=== PATIENT | male | born 1940 | race Caucasian/White ===

== ENCOUNTER 2018-07-29 13:00 | Outpatient (RCR) | payer MEDICARE, OTHER ==
--- NOTE | 2018-06-07 17:55 | PT INITIAL EVALUATION ---
MEDICAL DIAGNOSIS: M25.569 Pain in unspecified knee, M25.59 L shoulder pain TREATMENT DIAGNOSIS: Same, also R26.89 Imbalance DATE OF ONSET: 06/25/99 SUBJECTIVE: Juwan Hill (Bill) presents to PT for R knee pain (chronic - years), also L shoulder pain (11/2017) and reports altered balance (2016). He states his Synvisc R knee injection 01/17/18 alleviated R knee pain but he still has functional mobility weakness with descending stairs, carrying boxes, walking outdoors. He states he can walk slowly for a while but walking faster is immediately fatiguing. He has mild L shoulder bursitis from carrying heavy boxes in their move to [place] last summer, but this is better. He also notes he had vertigo with imbalance and diploplia 1.5 years ago and his balance has been off since then. Pain location is Posterior R knee, L lateral shoulder and described as knee and shoulder: ache. Pain scale is 1 on a ten point pain scale. Pain is worse with R knee: walking uneven ground, descending stairs with heavy boxes, L shoulder: laying on L side and better with R knee: Synvisc, L shoulder: moving shoulder. REHAB PROBLEM LIST: Increased Pain Decreased ROM Decreased Strength Decreased Endurance Decreased Balance Decreased Mobility Decreased Gait PREVIOUS MEDICAL HISTORY: DM, L TKA, B CTR, mild peripheral neuropathy, a fib., sleep apnea, R knee [id number] OA. OCCUPATION: Retired. OBJECTIVE: Posture: Protracted shoulder, knees and hips flexed. L distal LE PVD appearance. ROM: R knee AROM 5 deg. extension with crepitus, flexion WNL. B shoulder AROM flexion 130 deg., scaption 140 deg., IR T11, ER 80 deg. at 70 deg. scaption. Strength: B quad 4+/5, R hamstrings 5-/5, L 4/5, ankle DF, evertors 5/5. L shoulder ER 4/5, IR 5/5. Palpation: Tight R knee soft tissue, lateral patellofemoral joint tightness, lateral patellar position. Sensation: Diminished protective sensation B plantar feet, "G" 3.84, Jefferson- Daniela monofilament testing. Special Tests: Negative Hallpike or roll test for nystagmus or spinning vertigo. Head thrust, VOR x1 WNL. Mobility: Sit<>stand without UE use. Med mobility WNL. Gait: Pan ambulates with feet not passing each other, late heel strike to toe off. Functional Gait Assessment 60% impairment. Pan has immediate retro balance loss with closing his eyes, altered gait with retro walk, CGA and can't walk tandem gait due to LOB. Pan is able to turn 180 degrees without balance disturbance, normal fast flow gait. Gait with head motion with weaving. Stair use without handrail but weak eccentric quad function descending stairs. Balance: Double limb support only. Immediate LOB with tandem stand, static stand eyes closed (retro balance loss), static stand on foam. Heel/toe rocking with forward (heel raise) and retro balance loss (fore foot raise). Other Objective Findings: O2 on room air 94%. ASSESSMENT: Juwan Hill presents with B LE weakness, high fall risk, L shoulder tightness, R knee OA. His balance is a risk of injuring his R knee in a fall so I would like to work balance as well as stretching and strengthening. We'll direct shoulder stretching and muscle balancing HEP. Short Term Goals 4 weeks: Pan descends stairs with strong eccentric quad function, demonstrates postural stability with gait with head motion. 7 weeks: Pan denies R knee pain with long distance community ambulation, demonstrates corrective balance reaction ambulating over uneven surfaces, LE strength 5/5 for safer gait and stair use. Patient's Goals Improve strength for carrying, ambulation, improve balance to take care of R knee. PLAN: Patient to be seen for Manual Therapy/STM/MET Strengthening/condition Ice/Heat Range of Motion Stretching Neuromuscular Re-ed Electrical Stim Gait Trg/Balance Trg Home Exercise Program 2x/Week for 7 weeks Thank you for this referral. If you have any questions, comments, or concerns about this report or plan, please contact me at . GIAND
--- NOTE | 2018-07-15 16:36 | PT PLAN OF CARE ---
Physician: JEANETTE Abdi Patient is being seen: 2x/week Therapist: Erika Mike PT Medical Diagnosis: M25.569 Pain in unspecified knee, M25.59 L shoulder pain Treatment Diagnosis: Same, also R26.89 Imbalance Date of Onset: 06/25/99 Date of Initial Evaluation: 06/07/18 Date patient was last seen: 07/15/18 Number of treatments: 10 Number of cancellations/No shows: 0 INTERVENTIONS: Strengthening/condition, Neuromuscular Re-ed, Gait Trg/Balance Trg GOALS: 4 weeks: Pan descends stairs with strong eccentric quad function (met), demonstrates postural stability with gait with head motion (progressing). 7 weeks: Pan denies R knee pain with long distance community ambulation (met), demonstrates corrective balance reaction ambulating over uneven surfaces (progressing), LE strength 5/5 for safer gait and stair use (progressing). PATIENT'S GOAL: Improve strength for carrying (progressing), ambulation (progressing), improve balance to take care of R knee (progressing). Patient Compliance: Excellent Prognosis: Excellent Reasons for continuing therapy: S: Pan denies R knee pain. He relates his L shoulder will still hurt if he lays on it or carries too heavy an item. He denies falls. Posture: Upright trunk, more even shoulder posture, knees 0 degrees. ROM: R knee AROM 0 deg. extension with crepitus, flexion WNL. B shoulder AROM flexion 140 degrees. Strength: B quad 5-/5, R hamstrings still 5-/5, L 4+/5, ankle DF, evertors 5/5. L shoulder ER 4+/5. Gait: Functional Gait Assessment improved to 13% impairment. Pan now ambulates with head motion with mild discordant steps and weaving with head turn, WNL head up/down. Tandem gait LOB in two steps. Gait forward with eyes shut WNL. 8" stair descent with normal eccentric quad control. Balance: Retro balance loss with ankle sway, tilt board. Improved static postural control with tandem stand on firm, increased balance loss on foam. Mobility: Sit<>stand without UE use. Pan hasn't tried arising from the ground yet. A/P: Juwan Mayfield is improving strength (but not full), gait, balance, but is still a fall risk with retro balance challenges. If you agree, we'll continue to the 14th visit, then I may request continued PT. Thank you. NATASHA
[~2018-07-29 13:00] MED LIST: ACET-1966 PO; ALIS150T3 PO; APIX5TAB PO; ATEN-65 PO; ATOR20TA65 PO; ATOR40TA24 PO; BLOO1STR16 MC; CELE-1 PO; CLIN300C99 PO; COLE1TAB5 PO; CPAP; ESOM20CA31 PO; FEXO-67 PO; GLIP-130 PO; HYDR-2966 PO; HYDR-653 PO; INSU100I30 SQ; ISOP1TOW MC; LANC-1295 MC; LANI SUBQ; METR45CR10 TP; MUPI15CR10 TP; PEN1DIS. MC; PROM-110 PO; SITA1TAB17 PO; SITA1TBM PO; [UNRECOGNIZED DRUG - CODE] TP; [UNRECOGNIZED DRUG - OTHER] PO
--- NOTE | 2018-07-29 17:34 | PT PLAN OF CARE ---
Physician: JEANETTE Abdi Patient is being seen: 2x/week Therapist: Erika Mike, PT Medical Diagnosis: M25.569 Pain in unspecified knee, M25.59 L shoulder pain Treatment Diagnosis: Same, also R26.89 Imbalance Date of Onset: 06/25/99 Date of Initial Evaluation: 06/07/18 Date patient was last seen: 07/29/18 Number of treatments: 14 Number of cancellations/No shows: 0 INTERVENTIONS: Strengthening/condition, Stretching, Neuromuscular Re-ed, Gait Trg/Balance Trg GOALS: 4 weeks: Pan descends stairs with strong eccentric quad function (met), demonstrates postural stability with gait with head motion (met). 7 weeks: Pan denies R knee pain with long distance community ambulation (met), demonstrates corrective balance reaction ambulating over uneven surfaces (not met), LE strength 5/5 for safer gait and stair use (met). PATIENT'S GOAL: Improve strength for carrying (progressing), ambulation (met), improve balance to take care of R knee (progressing). Patient Compliance: Excellent Prognosis: Excellent Reasons for continuing therapy: S: Pan Hill relates he can walk in the community without R knee pain, has LOB over uneven ground and some knee pain. 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 He denies falls. Knee FOTO 28%. Posture: Protracted shoulder, knees and hips mild flexion now. ROM: R knee AROM 0 deg. extension with crepitus, flexion WNL. B shoulder AROM flexion 140 deg., scaption 150 degrees. Strength: B LE's, L rotator cuff 5/5. Gait: Fast cadance WNL, turns <4 seconds. Gait over soft surface with LOB. Functional Gait Assessment 13%. Special Tests: Retro balance loss with dynamic ankle balance challenges on foam. No stepping reactions observed during balance challenges. Narrow ALLI gait with LOB. Gait with head motion now WNL. Mobility: Sit<>stand without UE use. Med mobility WNL. A/P: Juwan Hill (Bill) has improved LE strength, has improved R knee functional strength. he still has balance loss with gait with uneven surfaces which creates fall risk and R knee loading. If you agree, I'd like to continue PT at 2x/week 7 weeks for high level balance training, continue strengthening. Thank you. NATASHA
--- NOTE | 2018-08-30 16:24 | PT PLAN OF CARE ---
Physician: JEANETTE Abdi Patient is being seen: 2x/week Therapist: Erika Mike, SERVANDO Medical Diagnosis: M25.569 Pain in unspecified knee, M25.59 L shoulder pain Treatment Diagnosis: Same, also R26.89 Imbalance Date of Onset: 06/25/99 Date of Initial Evaluation: 06/07/18 Date patient was last seen: 07/29/18 Number of treatments: 14 Number of cancellations/No shows: 0 INTERVENTIONS: Strengthening/condition, Stretching, Neuromuscular Re-ed, Gait Trg/Balance Trg GOALS: 4 weeks: Pan descends stairs with strong eccentric quad function (met), demonstrates postural stability with gait with head motion (met). 7 weeks: Pan denies R knee pain with long distance community ambulation (met), demonstrates corrective balance reaction ambulating over uneven surfaces (not met), LE strength 5/5 for safer gait and stair use (met). PATIENT'S GOAL: Improve strength for carrying (progressing), ambulation (met), improve balance to take care of R knee (progressing). Patient Compliance: Excellent Prognosis: Excellent Reasons for discontinuing therapy: S: Pan's [facility] timeline authorization has . We haven't heard from the [facility] about my request to continue PT for balance training. O: Please see last progress note of 07/29/18 for last measurements. A/P: Pan Hill still needed balance training. If he receives authorization, we'll open a new account for it. I will DC PT for now due to time expiration. Thank you. NATASHA
== END 2018-07-29 18:00 | disposition home or self-care (01) ==
LOC: PT 13:00
PROVIDERS: ATTEND Nurse Practitioner Family
DX: M25.512 Pain in left shoulder (principal); M25.562 Pain in left knee; R26.89 Other abnormalities of gait and mobility
CPT/HCPCS: 97162

== ENCOUNTER → 2018-07-31 | Outpatient (CLI) | payer MEDICARE, OTHER ==
--- NOTE | 2018-07-31 10:35 | RADIOLOGY IMAGING REPORT ---
FACILITY: [facility] - [place] PATIENT NAME: Juwan Hill : 1940 MR: [id number] V: [id number] EXAM DATE: ORDERING PHYSICIAN: GUERO BRADFORD TECHNOLOGIST: [facility] Patient: Juwan Hill : 1940 Visit/Account:[id number] Date of Sevice: 07/31/2018 Exam type: US ARTERIAL SEGMENTAL PRESSURES History: Nonpalpable pulses left foot with Drive fissured skin Comparison: None. Findings: The segmental pressure in the right brachial artery is 129 mmHg. There is a pressure gradient of 55 between the right results pedis artery in the right great toe. The RITO on the right is 1.11. The TB I on the right is 0.68 The segmental pressure in the left brachial artery is 119 mmHg. Is a pressure gradient of 57 between the left dorsalis pedis artery in the left great toe. The RITO on the left is 1.07 and the TBI on th e left is 0.57 There is mild dampening of the PVR waveforms at the great toes IMPRESSION: 1. RITO on the right is 1.11 and on the left 1.07 TBI in the right is 0.68 and on the left 0.57 Pressure gradients between the dorsalis pedis arteries and the great toes bilaterally with mild dampe elliot of the PVR waveforms Report Dictated By: Delaney Sanz MD at 07/31/2018 10:27 AM Report E-Signed By: Delaney Sanz MD at 07/31/2018 10:31 AM WSN:[email or web address]
== END ==
LOC: US 00:29
PROVIDERS: ATTEND Podiatrist
DX: I70.292 Other atherosclerosis of native arteries of extremities, left leg (principal)

== ENCOUNTER → 2018-10-07 | Outpatient (CLI) | payer MEDICARE, OTHER ==
[~2018-10-07] MED LIST changes: +GADOBENATE 529MG/1ML 15ML VIAL IVP ONE
--- NOTE | 2018-10-07 10:24 | RADIOLOGY IMAGING REPORT ---
FACILITY: [facility] - [place] PATIENT NAME: Juwan Hill : 1940 MR: [id number] V: [id number] EXAM DATE: [id number] ORDERING PHYSICIAN: ILSA BROWNE TECHNOLOGIST: [place] [facility] [place]wan [place] : 1940 Visit/Account:[id number] Date of Sevice: 10/07/2018 XR ORBITS Given history: Pre-MRI clearance Additional history: None Findings:Osseous structures normal. Paranasal sinuses well aerated. There are no radiopaque foreign body seen over the orbits. Impression: Normal study. Patient cleared for MRI. Impression relayed to referring service at time of dictation. Report Dictated By: Arie Wang MD at 10/07/2018 10:17 AM Report E-Signed By: Arie Wang MD at 10/07/2018 10:18 AM WSN:[id number]
--- NOTE | 2018-10-07 11:56 | RADIOLOGY IMAGING REPORT ---
FACILITY: [facility] [place] PATIENT NAME: Juwan Hill : 1940 MR: [id number] V: [id number] EXAM DATE: ORDERING PHYSICIAN: ILSA BROWNE TECHNOLOGIST: Location: [facility] Patient: Juwan Hill : 1940 Visit/Account:[id number] Date of Sevice: 10/07/2018 EXAMINATION: MRI brain without IV contrast MRI brain with IV contrast HISTORY: Brain mass, follow-up recommended. COMPARISON: None available at this institution. TECHNIQUE: Multi-planar, multi-sequence brain MRI was performed before and after IV gadolinium. CONTRAST: 15 mL of IV MultiHance gadolinium. FINDINGS: Brain volume: Normal. Sagittal midline structures: Normal. Ventricles: Normal. Acute ischemic changes: No diffusion restriction present to suggest acute ischemia. Hemorrhage: No acute hemorrhage or hemosiderin staining. Masses/edema/enhancement: There is a homogeneously enhancing extra-axial mass with a broad dural bas e along the left posterior falx. This lesion measures 1.6 x 1.0 cm (image 17 series 9) by 1.5 cm (im age 22 series 10). The superior margin of the lesion is adjacent to the superior sagittal sinus, wit hout mass effect or narrowing of the sinus. There is no thrombus in the superior sagittal sinus. Th ere is no edema in the adjacent brain. Gannon-white: Negative. White matter: Patchy T2/FLAIR hyperintensities in the deep white matter bilaterally. Vessels: Normal. Extra-axial: None. Calvarium/scalp: Negative. Skull base: Negative. Visualized sinuses/orbits: Minimal mucosal thickening in the bilateral ethmoid air cells. Mild nasa l septal deviation to the left. Trace bilateral mastoid fluid. Visualized upper neck: Negative. IMPRESSION: 1. 1.6 x 1.0 x 1.5 cm left posterior parafalcine extra-axial mass is most likely a benign meningioma . No edema in the adjacent brain. 2. [id number] nonspecific white matter disease is suspicious for chronic small vessel ischemia . 3. No acute infarct or hemorrhage. Report Dictated By: Rocío Garner MD at 10/07/2018 11:46 AM Report E-Signed By: Rocío Garner MD at 10/07/2018 11:52 AM WSN:[email or web address]
== END ==
LOC: MRI 00:35
PROVIDERS: ATTEND Nurse Practitioner Family
DX: G93.89 Other specified disorders of brain (principal)
CPT/HCPCS: 70030; 70553; A9577

== ENCOUNTER 2018-10-23 02:48 | Emergency (ER) | payer MEDICARE, OTHER ==
[~2018-10-23 02:48] MED LIST changes: -GADOBENATE 529MG/1ML 15ML VIAL IVP ONE
--- NOTE | 2018-10-23 03:01 | ER Report ---
History and Physical Time Seen By MD: 03:00 Hx. of Stated Complaint: patient has had a reash on the back of his left calf for a few days, it is really itchy, patient was told to come in if it got any worse. HPI/ROS CHIEF COMPLAINT: Rash HISTORY OF PRESENT ILLNESS: This is a 78-year-old male. He is having recurrent rash on the back of his left calf. Started 2 days ago. Tonight his low but more painful and itchy at the same time. This is exactly the same pattern as when he had rash back in May and was treated with an oral antibiotic after being seen in the ER. Looking back at the note it looks like they use clindamycin at that time. He says that the rash is earlier in its development this time than last time. He doesn't recall that it gets last time but otherwise it looks the same. It always seems to happen on the left calf and he thinks it's related to his prior knee surgery. He also has diabetes. Denies any fevers or chills. No nausea or vomiting. Allergies: Coded Allergies: lisinopril (Unverified Allergy, Mild, hives, 06/13/18) Home Meds Active Scripts Clindamycin Hcl (CLINDAMYCIN HCL) 300 Mg Capsule, 300 MG PO Q6H, #28 CAPSULE 0 Refills Prov:EILEEN HARDWICK MD 10/23/18 Mupirocin Calcium (BACTROBAN) 15 Gm Cream..g., 0 TP TID for 10 Days, #1 TUBE Prov:FANG BARRAZA MD 06/13/18 Isopropyl Alcohol (ALCOH-WIPE) 1 Each Towelette, EACH MC every 3 months, #300 Use to test blood sugar and administer insulin (3 times daily) 4 refills Prov:KAYLAH BURR MD 05/21/18 Fexofenadine Hcl (XIMENA ALLERGY) 180 Mg Tablet, 1 TAB PO QDAY PRN for allergy symptoms, #90 TAB 4 Refills Prov:KAYLAH BURR MD 05/21/18 Pen Needle, Diabetic, Safety (PEN NEEDLE) 1 Each Dis.needle, EACH MC Q30D, #100 12 Refills use to administer insulin daily Prov:SAL FERRER APRN METAL SOLDERER-C 02/11/18 Lancets (FREESTYLE LANCETS) 1 Each Each, EACH MC Q30D, #100 4 Refills Use to test blood sugar twice daily. Prov:SAL FERRER APRN 02/11/18 Blood Sugar Diagnostic (FREESTYLE LITE TEST STRIPS) 1 Each Strip, 100 EACH MC Q30D, #100 STRIP 4 Refills Use to check blood sugars twice daily Prov:SAL FERRER APRNP-C 02/11/18 Sitagliptin Phos/Metformin Hcl (JANUMET XR 50-500 MG TABLET) 1 Each Tbmp.24hr, 1 TAB PO QDAY, #90 TAB 3 Refills Prov:KAYLAH BURR MD 02/08/18 Insulin Glargine 100 Un/Ml Pen (LANTUS SOLOSTAR PEN) 100 Unit/1 Ml Insuln.pen, 12 UNIT SQ QHS, #5 EACH 3 Refills Prov:KAYLAH BURR MD 02/06/18 Apixaban (ELIQUIS) 5 Mg Tablet, 1 TAB PO BID, #180 TAB 3 Refills Prov:KAYLAH BURR MD 02/06/18 Colestipol Hcl (COLESTID) 1 Gm Tablet, 1 TAB PO BID, #180 TAB 3 Refills Prov:KAYLAH BURR MD 02/06/18 Aliskiren Hemifumarate (TEKTURNA) 150 Mg Tablet, 1 TAB PO QDAY, #90 TAB 3 Refills Prov:KAYLAH UBRR MD 02/06/18 Hydrochlorothiazide (HYDROCHLOROTHIAZIDE) 25 Mg Tablet, 1 TAB PO QDAY, #90 TAB 3 Refills Prov:KAYLAH BURR MD 02/06/18 Atenolol (ATENOLOL) 25 Mg Tablet, 1 TAB PO BID, #180 TAB 3 Refills Prov:KAYLAH BURR MD 02/06/18 Reported Medications Atorvastatin Calcium (LIPITOR) 40 Mg Tablet, 1 TAB PO QDAY, TAB 06/13/18 Cpap (CPAP HOME) Inha, HS 02/06/18 Emollient (VANICREAM) 453 Gm Cream..g., 1 YARI TP TID 01/06/15 Discontinued Scripts Clindamycin Hcl (CLINDAMYCIN HCL) 300 Mg Capsule, 300 MG PO Q6H for 10 Days, #40 CAPSULE Prov:FANG BARRAZA MD 06/13/18 Reviewed Nurses Notes: Yes Hx Smoking: Yes Smoking Status: Former Smoker Hx Substance Use Disorder: No Hx Alcohol Use: No Constitutional Vital Sign - Last 24 Hours 10/23/18 10/23/18 10/23/18 10/23/18 02:52 03:00 03:03 03:18 Temp 98.0 Pulse 60 55 59 Resp 20 B/P (MAP) 141/103 130/73 (92) Pulse Ox 94 91 93 10/23/18 10/23/18 03:30 03:33 Pulse ??? B/P (MAP) 107/65 (79) Pulse Ox 91 Physical Exam General: Alert, no distress. Skin: Rash appears mostly on posterior left calf. Scattered areas of macular areas, some in more circular distribution, some more confluent, no real satelite lesions noted. Lesions are blanchable. Slightly more warm that surrounding skin, but no really hot. No scale and no drainage. Anterior fatima with some skin discoloration dark color chronically. Musculoskeletal: No pain, normal motor. Cardiovascular: Trace edema bilateral ankles. Normal peripheral perfusion. Medical Decision Making ED Course/Re-evaluation ED Course Based on appearance, the rash looks more inflammatory. Based on his history and progression last time, this could be the same rash and an early cellulitis. Alternatively, could have been inflammatory or eczematous last time with a secondary cellulitis. Will start with some Triamcinolone cream. Discussed antibiotic use and the patient would like to use the Clindamycin like last time. He has an appointment with Dr. Bashir to establish care tomorrow and will follow-up with him for re-evaluation at that visit. As an aside, the patient mentioned at the end of the visit that he was having some left sided TMJ area pain. Has been there for a few days now. Hurts more to open jaw all the way and to chew on that side. Denies dental problems. No trouble with his ear on that side, or swallowing. Has hearing aides. He feels a slight bump in the area as well and slight swelling. Looked in his mouth and had normal oral mucosa nad no problems noted with dentition. Looked in ear as well, and the canal and TM are normal. No clicking of the TMJ with opening and closing jaw. Does not appear to have maloclusion. No lymphadenopathy noted. Normal nasal mucosa. Recommended follow-up with Dr. Bashir on this and possibly need to see ENT if this continues. Did not notice any skin rash in the area. Possibly very mild swelling in the area. Parotid area is not swollen or hard, but could try sucking on some sour candies. He also asked about possible biopsy of the leg. Let him know that this would be a good idea if it keeps recurring and if it does not go away, but that he would need to talk to primary care about this as we do not do this type of procedure in the ER. Primary care or Dermatology would be the place to inquire about this. Decision to Disposition Date: October 23, 2018 Decision to Disposition Time: 03:22 Depart Departure Latest Vital Signs Vital Signs Date Time Temp Pulse Resp B/P (MAP) Pulse Ox O2 Delivery O2 Flow Rate FiO2 10/23/18 03:33 ??? 91 10/23/18 03:30 107/65 (79) 10/23/18 02:52 98.0 20 Impression: Primary Impression: Rash and nonspecific skin eruption Condition: Improved Disposition: HOME OR SELF-CARE Referrals: KAYLAH BURR MD (PCP) New Scripts Clindamycin Hcl (CLINDAMYCIN HCL) 300 Mg Capsule 300 MG PO Q6H, #28 CAPSULE 0 Refills Prov: EILEEN HARDWICK MD 10/23/18 Patient Instructions: Acute Rash (ED) Additional Instructions: Restart the antibiotic Clindamycin 300mg capsule four times a day for 7 days. Use the steroid cream Triamcinolone twice a day to the area of rash and itching. You can use an uxac-qvg-zfkhlco antihistamine called Cetirizine (Zyrtec) 10mg once a day. Tonight we will give you a dose of a similar medicine called Benadryl that helps itching, you can use one 25mg tablet once you get home. These medicines can help with itching. Follow-up with Dr. Bashir as planned tomorrow. EILEEN HARDWICK MD October 23, 2018 03:00
[2018-10-23] MEDS ORDERED: CLINDAMYCIN 150 MG CAP PO ONE (03:20)
[2018-10-23] MEDS ORDERED: diphenhydrAMINE 25 MG CAP TH PO ONE (03:20)
[2018-10-23] MEDS ORDERED: CLIN300C99 PO (03:24)
[2018-10-23 03:30] VITALS: BP 107/65
[2018-10-23] MEDS ORDERED: diphenhydrAMINE 25 MG CAP ONE (03:31)
[2018-10-23] MEDS ORDERED: TRIAMCINOLONE ACE 0.1% CR 15GM TP SCH (09:00)
== END 2018-10-23 03:48 | disposition home or self-care (01) ==
LOC: ER 03:07
DX: R21 Rash and other nonspecific skin eruption (principal)
CPT/HCPCS: 99283; A9270

== ENCOUNTER → 2018-10-30 | Outpatient (CLI) | payer MEDICARE, OTHER ==
[2018-10-30 08:18] LABS: PLATELET COUNT, AUTOMATED 151 K/uL (150-450)
[2018-10-30 09:22] LABS: LDL CHOLESTEROL 24 mg/dl
== END ==
LOC: LAB 08:01
PROVIDERS: ATTEND Internal Medicine
DX: I48.2 Chronic atrial fibrillation (principal); E78.00 Pure hypercholesterolemia, unspecified; G47.33 Obstructive sleep apnea (adult) (pediatric); E11.9 Type 2 diabetes mellitus without complications; I10 Essential (primary) hypertension
CPT/HCPCS: 36415; 81001; 83036; 84443; 85025; G0103; 82040; 82247; 82310; 82374; 82435; 82465; 82565; 82947; 83718; 84075; 84132; 84153; 84155; 84295; 84450; 84460; 84478; 84520